=== PATIENT | male | born 1960 | race Hispanic/Latino ===

== ENCOUNTER 2023-12-19 06:16 | Day surgery (SDC) | payer OTHER ==
[2023-12-19] VITALS (15 sets, daily range): BP systolic 114–135; BP diastolic 61–87; PULSE 57–73; RESP 14–20
[~2023-12-19] VITALS: Ht 182.9 cm; Wt 84.8 kg
[~2023-12-19 06:16] MED LIST: ASPI-1197 PO; STOOL SOFTNER PO
[2023-12-19] MEDS: 0.9%NACL 1000ML 1,000 ML IV ONE (06:43)
[2023-12-19] MEDS ORDERED: ACETAMINOPHEN 1,000 MG/100 ML VIAL IV ONE (07:44)
[2023-12-19] MEDS ORDERED: FAMOTIDINE 20MG VIAL IV ONE (07:45)
[2023-12-19] MEDS ORDERED: ROCURONIUM BROMIDE 10MG/1ML 5ML VL ONE (07:55)
[2023-12-19] MEDS ORDERED: PROPOFOL 10 MG/ML 20ML VIAL IV ONE (07:55)
[2023-12-19] MEDS ORDERED: LIDOCAINE PF 100MG/5ML (2%) SYRINGE 5ML ONE (07:55)
[2023-12-19] MEDS ORDERED: FENTANYL CITRATE PF 50 MCG/1 ML 2ML VIAL ONE (07:56)
[2023-12-19 08:06] LABS: BASOPHILS # (AUTO) 0.08 K/uL (0.00-0.20); BASOPHILS % (AUTO) 0.8 % (0.0-5.0); EOSINOPHILS # (AUTO) 0.13 K/uL (0.00-0.70); EOSINOPHILS % (AUTO) 1.2 % (0.0-8.0); IMMATURE GRANULOCYTE ABSOLUTE 0.04 K/uL (0-1); LYMPHOCYTES # (AUTO) 1.8 K/uL (1.0-4.8); LYMPHOCYTES % (AUTO) 17.4 % (21.0-51.0); MEAN CORPUSCULAR HEMOGLOBIN 29.5 pg (27.0-33.0); MEAN CORPUSCULAR HGB CONC 34.6 g/dL (32.0-36.0); MEAN CORPUSCULAR VOLUME 85.3 fL (79-99); MONOCYTES # (AUTO) 0.8 K/uL (0.1-1.0); MONOCYTES % (AUTO) 8.1 % (3.0-13.0); NEUTROPHILS # (AUTO) 7.5 K/uL (1.8-7.7); NEUTROPHILS % (AUTO) 72.1 % (40.0-77.0); PLATELET COUNT (AUTO) 352 K/uL (130-400); RED BLOOD CELL COUNT(AUTO) 5.39 MIL/uL (4.50-6.20); RED CELL DISTRIBUTION WIDTH 13.1 % (11.0-15.5); WHITE BLOOD COUNT (AUTO) 10.4 K/uL (4.8-10.8)
[2023-12-19] MEDS ORDERED: DEXAMETHASONE SOD PHOSPHATE 10MG/ML 1ML VIAL ONE (08:13)
[2023-12-19] MEDS ORDERED: ONDANSETRON 4MG INJ ONE (08:13)
[2023-12-19] MEDS ORDERED: LIDOCAINE 1%-EPI 1:100,000 20 ML VIAL ONE (08:17)
[2023-12-19] MEDS: LIDOCAINE 1%-EPI 1:100,000 20 ML VIAL ONE (08:19)
[2023-12-19] MEDS: BUPIVACAINE/PF 0.25% 30ML VIAL IJ ONE (08:19)
[2023-12-19 08:28] LABS: ALBUMIN 3.7 g/dL (3.5-5.0); BILIRUBIN,TOTAL 0.7 mg/dL (0.2-1.0); CREATININE 1.2 mg/dL (0.5-1.3); POTASSIUM 4.1 mmol/L (3.5-5.1); TOTAL PROTEIN, SERUM 7.6 g/dL (6.0-8.3)
[2023-12-19] MEDS ORDERED: NEOSTIGMINE METHYLSULFATE 1MG/ML IV ONE (08:41)
[2023-12-19] MEDS ORDERED: GLYCOPYRROLATE 0.2 MG/ML 5 ML VIAL ONE (08:41)
== END 2023-12-19 10:20 | disposition home or self-care (01) ==
LOC: DAH 06:16 → ENDO 06:16
PROVIDERS: ATTEND Surgery
DX: Z12.11 Encounter for screening for malignant neoplasm of colon (principal); K62.89 Other specified diseases of anus and rectum; L98.498 Non-pressure chronic ulcer of skin of other sites with other specified severity; K57.30 Diverticulosis of large intestine without perforation or abscess without bleeding; E05.90 Thyrotoxicosis, unspecified without thyrotoxic crisis or storm; E78.00 Pure hypercholesterolemia, unspecified; Z79.899 Other long term (current) drug therapy
CPT/HCPCS: 46999; 45378; 80053; 85025; 36415; 88305; J0665; J7120; J3490 ×5; J3010; J1100; J7030; J2001; J2704; J2405; J2710; A4649; A4930